=== PATIENT | female | born 1980 | race Hispanic/Latino ===

== ENCOUNTER 2019-01-24 12:10 | Emergency (ER) | payer OTHER ==
[~2019-01-24] VITALS: Ht 152.4 cm; Wt 85.0 kg
[2019-01-24 14:25] VITALS: BP 144/89
== END 2019-01-24 14:34 | disposition home or self-care (01) ==
LOC: FSED 12:10
DX: R21 Rash and other nonspecific skin eruption (principal); I10 Essential (primary) hypertension; E11.9 Type 2 diabetes mellitus without complications; F17.210 Nicotine dependence, cigarettes, uncomplicated
CPT/HCPCS: 99282

== ENCOUNTER → 2020-10-16 | Outpatient (CLI) | payer OTHER | LOC: RAD 10:08 | PROVIDERS: ATTEND Family Medicine | DX: R10.30 Lower abdominal pain, unspecified (principal) | CPT/HCPCS: 74018; 81025 ==

== ENCOUNTER 2023-10-22 00:27 | Emergency (ER) | payer OTHER ==
[~2023-10-22] VITALS: Ht 152.4 cm; Wt 86.2 kg
[2023-10-22 00:48] VITALS: PULSE 90; RESP 16; TEMP 98.1; O2SAT 100
== END 2023-10-22 02:18 | disposition home or self-care (01) ==
LOC: ER 00:44
DX: T19.2XXA Foreign body in vulva and vagina, initial encounter (principal); I10 Essential (primary) hypertension; E11.9 Type 2 diabetes mellitus without complications; D64.9 Anemia, unspecified; F17.210 Nicotine dependence, cigarettes, uncomplicated
CPT/HCPCS: 99283